=== PATIENT | female | born 1995 | race Caucasian/White ===

== ENCOUNTER 2018-11-07 16:10 | Outpatient (CLI) | payer MEDICAID | END 2018-11-07 19:40 | disposition home or self-care (01) | LOC: OBT 16:10 → L-D 16:16 → OBT 19:40 | DX: O36.5930 Maternal care for other known or suspected poor fetal growth, third trimester, not applicable or unspecified (principal); Z3A.27 27 weeks gestation of pregnancy | CPT/HCPCS: 76815; 76818; 76820 ==